=== PATIENT | female | born 2000 | race Caucasian/White ===

== ENCOUNTER 2024-01-29 16:33 | Emergency (ER) | payer OTHER, SELFPAY ==
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
[2024-01-29 16:40] VITALS: BP 137/92; PULSE 81; RESP 18; TEMP 36.7; O2SAT 99; BMI 30.7
--- OUTSIDE RECORDS SUMMARY | 2024-01-29 17:44 | XMS_ITS | Continuity of Care Document ---
Author Organization [facility] [place] [place] Address [address] [place] [address]- Care Team Providers Care Museum Registrar Name Role Phone Not on Staff, PCP Primary Care Physician Unavail able Encounter [facility] Date(s): 08/07/23 - 09/06/23 [facility] [place] Adult [address] [place] [address]- Patient Care team information Care Team Personnel Name: Not on Staff, PCP Position: [facility] Physician (General Medicine) Member Role: PCP Care Team Related Persons Name: ANNY MICHELLE Name: JESSENIA RAE
--- OUTSIDE RECORDS SUMMARY | 2024-01-29 17:44 | XMS_ITS | Continuity of Care Document ---
Author Organization [facility] Address [address] [place] [address]- Care Team Providers Care Ios Developer Name Role Phone Not on Staff, PCP Primary Care Physician Unavail able Encounter [facility] ACCT R [id number] Date(s): 11/14/22 - 12/14/22 [facility] [address] [place] [address]- Attending Physician: Elizabeth Quarles Admitting Physician: Elizabeth Quarles Referring Physician: Admtr Ar8 Patient Care team information Care Team Personnel Name: Not on Staff, PCP Position: S Physician (General Medicine) Member Role: PCP
--- OUTSIDE RECORDS SUMMARY | 2024-01-29 17:44 | XMS_ITS | Continuity of Care Document ---
Author Organization [facility] [place] Address [address] [place] [address]- Care Team Providers Care Deck And Hull Assembler Name Role Phone Not on Staff, PCP Primary Care Physician Unavail able Encounter [facility] Date(s): 11/05/23 - 12/05/23 [facility] [address] [place] [address]- Attending Physician: Admtr, Ar8 Admitting Physician: Admtr, Ar8 Referring Physician: Admtr, Ar8 Patient Care team information Care Team Personnel Name: Not on Staff, PCP Position: S Physician (General Medicine) Member Role: PCP Care Team Related Persons Name: ANNY MICHELLE Address: [address] [place] [address] Name: JESSENIA RAE Address: [address] [place] [address]
--- OUTSIDE RECORDS SUMMARY | 2024-01-29 17:44 | XMS_ITS | Continuity of Care Document ---
Author Organization [facility] [place] Address [address] [place] [address]- Care Team Providers Care Ibm Websphere Commerce Consultant Name Role Phone Not on Staff, PCP Primary Care Physician Unavail able Encounter [facility] Date(s): 08/07/23 - 12/05/23 [facility] [place] Adult [address] [place] [address]- Attending Physician: Bita Cruz Patient Care team information Care Team Personnel Name: Not on Staff, PCP Position: S Physician (General Medicine) Member Role: PCP Care Team Related Persons Name: ANNY MICHELLE Address: [address] [place] [address] Name: JESSENIA RAE Address: [address] [place] [address]
--- OUTSIDE RECORDS SUMMARY | 2024-01-29 17:44 | XMS_ITS | Continuity of Care Document ---
Author Organization [facility] Address [address] [place] [address]- Care Team Providers Care Computer Network And Systems Engineer Name Role Phone Not on Staff, PCP Primary Care Physician Unavail able Encounter [facility] Date(s): 11/11/22 - 12/14/22 [facility] [address] [place] [address]- Attending Physician: Sandy Carranza MD Patient Care team information Care Team Personnel Name: Not on Staff, PCP Position: S Physician (General Medicine) Member Role: PCP
--- OUTSIDE RECORDS SUMMARY | 2024-01-29 17:45 | XMS_ITS | Continuity of Care Document ---
Author Organization [facility] Address [address] [place] [address]- Care Team Providers Care Scientific Affairs Manager Name Role Phone Not on Staff, PCP Primary Care Physician Unavail able Encounter [facility] Date(s): 11/07/23 - 12/07/23 [facility] [address] [place] [address]- Patient Care team information Care Team Personnel Name: Not on Staff, PCP Position: [facility] Physician (General Medicine) Member Role: PCP Care Team Related Persons Name: ANNY MICHELLE Address: [address] [place] [address] Name: JESSENIA RAE Address: [address] [place] [address]
--- OUTSIDE RECORDS SUMMARY | 2024-01-29 17:45 | XMS_ITS | Continuity of Care Document ---
Author Organization [facility] Address [address] [place] [address]- Care Team Providers Care Business Support Specialist Name Role Phone Not on Staff, PCP Primary Care Physician Unavail able Encounter [facility] Date(s): 11/07/23 - 01/15/24 [facility] [address] [place] [address]- Attending Physician: Familia Powell DO Patient Care team information Care Team Personnel Name: Not on Staff, PCP Position: S Physician (General Medicine) Member Role: PCP Care Team Related Persons Name: ANNY MICHELLE Address: [address] [place] [address] Name: JESSENIA ARE Address: [address] [place] [address]
[2024-01-29 18:11] VITALS: BP 132/77; PULSE 65; RESP 16; TEMP 36.9; O2SAT 99
[2024-01-29 18:14] LABS: HCG Quantitative < 2 mIU/mL
[2024-01-29] MEDS: Lidocaine 4 % Patch ADH..PATCH 1 PATCH TRANSDERMA (19:05)
[2024-01-29] MEDS: Ketorolac Tromethamine 30 MG/ML VIAL IM (19:06)
--- NOTE | 2024-01-29 19:16 | PC.NURSE ---
pt medicated per mar, awaiting results
[2024-01-29 19:57] VITALS: BP 117/71; PULSE 65; RESP 16; TEMP 36.9; O2SAT 98
[2024-01-29 19:58] VITALS: BP 117/71; PULSE 67; RESP 20; TEMP 36.9; O2SAT 100
--- NOTE | 2024-01-29 19:59 | PC.NURSE ---
Reviewed discharge instruction with pt, pt verbalized understanding, no sign of distress, pt refused tordal and lidocaine patch, provider into to discuss plan of discharge.
== END 2024-01-29 20:00 | disposition home or self-care (01) ==
PROVIDERS: Physician Assistant Medical; Emergency Provider Emergency Medicine
DX: S06.0X0A Concussion without loss of consciousness, initial encounter (principal); S16.1XXA Strain of muscle, fascia and tendon at neck level, initial encounter; V43.62XA Car passenger injured in collision with other type car in traffic accident, initial encounter; Y93.9 Activity, unspecified; Y92.410 Unspecified street and highway as the place of occurrence of the external cause; R51.9 Headache, unspecified
CPT/HCPCS: 36415; 70450; 72125; 84702; 96372; 99284; J1885

== ENCOUNTER 2024-08-02 05:47 | Emergency (ER) | payer OTHER, SELFPAY ==
--- NOTE | ~2024-08-02 | XR_ITS ---
EXAMINATION: XR FINGER, RIGHT CLINICAL INFORMATION: pinky finger injury COMPARISON: None available. TECHNIQUE: 3 view series of the right fifth metacarpal rate. FINDINGS: Images are obtained with a marker directed towards the ulnar aspect of the fifth distal interphalangeal joint. A minimally displaced 2 mm volar plate fracture with intra-articular extension is noted at the base of the fifth middle phalanx. Adjacent soft tissue prominence is present. No soft tissue emphysema. XR/XR finger RT min 2V IMPRESSION: *Minimally displaced intra-articular volar plate fracture of the proximal base of the fifth middle phalanx with intra-articular extension into the fifth proximal interphalangeal joint. Electronically signed by: Sebas Beasley MD 08/02/2024 06:25 AM [facility]
[2024-08-02 05:49] VITALS: BP 145/88; PULSE 109; RESP 20; TEMP 37; O2SAT 99; BMI 29.3
--- OUTSIDE RECORDS SUMMARY | 2024-08-02 06:07 | XMS_ITS | Continuity of Care Document ---
Author Organization [facility] Address [address] [place] [address]- Care Team Providers Care Oracle Erp Architect Name Role Phone Not on Staff, PCP Primary Care Physician Unavail able [facility] Date(s): 11/08/23 - 03/07/24 [facility] [address] [place] [address]- Attending Physician: Marina FOWLER, Zabrina Briceno Immunizations Given and Recorded Vaccine Date Status Refusal Reason tetanus/diphtheria/pertussis, acel(Tdap) 06/10/23 Recorded SARS-CoV-2 (COVID-19) mRNA-1273 vaccine 09/05/21 R ecorded SARS-CoV-2 (COVID-19) mRNA-1273 vaccine 02/28/21 R ecorded SARS-CoV-2 (COVID-19) mRNA-1273 vaccine 01/14/21 R ecorded Patient Care team information Care Team Personnel Name: Not on Staff, PCP Position: S Physician (General Medicine) Member Role: PCP Care Team Related Persons Name: ANNY MICHELLE Address: [address] [place] [address] Name: JESSENIA RAE Address: [address] [place] [address]
--- OUTSIDE RECORDS SUMMARY | 2024-08-02 06:07 | XMS_ITS | Continuity of Care Document ---
Author Organization [facility] Address [address] [place] [address]- Care Team Providers Care Pipe Smoker Machine Operator Name Role Phone Not on Staff, PCP Primary Care Physician Unavail able Encounter [facility] Date(s): 02/06/24 - 03/07/24 [facility] [address] [place] [address]- Attending Physician: Elizabeth Quarles Admitting Physician: AdmtrElizabeth Referring Physician: Admtr, Ar8 Immunizations Given and Recorded Vaccine Date Status [...] Persons Name: ANNY MICHELLE Address: [address] [place] [address] Name: JESSENIA RAE Address: [address] [place] [address]
--- NOTE | 2024-08-02 09:02 | ED.EXTPRO ---
HPI - Extremity Problem General Chief complaint: Extremity Injury, Upper Stated complaint: broken finger Time Seen by Provider: 08/02/24 08:58 Source: patient and RN notes reviewed Mode of arrival: ambulatory Limitations: no limitations History of Present Illness ED Provider: Francisca Palacio PA-C HPI Narrative: This is a 24-year-old female, with no known medical problems, who presents emergency department with complaints of right to left 5th finger pain since this morning. Patient states that she was working on in our project when a metal object fell directly onto her right pinky. She reports that she noticed bruising and came into the emergency room for further treatment. Denies any numbness or tingling. Denies taking any medications prior to arrival. No numbness or tingling. She is right-hand dominant No other complaints or concerns at this time. MD Complaint: extremity pain and extremity swelling Pain Consistency: constant Location: right and upper extremity Quality: aching Radiation: none Relieving factors: nothing Exacerbating factors: nothing Associated symptoms: denies other symptoms Related Data Previous Rx's ?Medication ?Instructions ?Recorded cyclobenzaprine 5 mg tablet 5 mg PO Q8H PRN muscle spasm #7 01/29/24 tabs lidocaine 5 % topical patch 1 patch topical DAILY #15 ea 01/29/24 (Lidoderm) naproxen 500 mg tablet 500 mg PO Q8-12H PRN pain (scale 01/29/24 score 4-6) #20 tabs acetaminophen 500 mg tablet 500 mg PO Q6H PRN pain #30 tabs 08/02/24 (Tylenol Extra Strength) ibuprofen 600 mg tablet 600 mg PO Q6H PRN pain #30 tabs 08/02/24 Allergies Allergy/AdvReac Type Severity Reaction Status Date / Time No Known Allergies Allergy Verified 08/02/24 05:53 Review of Systems Review of Systems: Yes all other systems are reviewed and are negative [facility] Social History Social History Advance Directives: No Advance Directives Information Provided: Yes Physical Exam Vital Signs: Vital Signs: Last Vital Signs Temp 98.6 F 08/02/24 05:49 Pulse 109 H 08/02/24 05:49 Resp 20 08/02/24 05:49 BP 145/88 H 08/02/24 05:49 Pulse Ox 99 08/02/24 05:49 O2 Del Method Room Air 08/02/24 05:49 BMI result Body Mass Index 29.3 Const: Other: General: Awake, alert, and oriented X3. No acute distress. HEENT: Normal inspection CVS: Normal heart rate and rhythm. Pulses normal. Respiratory: No respiratory distress Skin: Warm, dry, no rashes noted to exposed skin. Normal skin color. Normal skin turgor. Extremities: Right 5th digit, palmar aspect, overlying the proximal middle phalanx, there is ecchymosis, and point tenderness palpation. No open wounds. Patient has full range of motion of the digit without difficulty. Strong radial pulse. Capillary refill less than 2 seconds. Neuro: Oriented X 3. No motor deficit. No sensory deficit. Medical Decision Making Medical Decision Making MDM Narrative: This is a 24-year-old female who presents emergency department with complaints of right 5th digit pain since this morning. On arrival, patient has tenderness palpation along the proximal phalanx. Differential diagnoses include sprain, strain, contusion, fracture. X-rays performed revealing minimally displaced intra-articular volar plate fracture of the proximal base of the 5th phalanx with intra articular extension into the 5th proximal interphalangeal joint. Discussed findings with patient. She was placed in finger splint. Given orthopedic referral. Discharged on ibuprofen and Tylenol. Given return precautions. Patient stable for discharge Differential Diagnosis Differential Diagnoses: The differential diagnosis associated with the presentation includes See above Radiology Impression Discussion of test interpretation with radiology: I have reviewed the radiologist's reading. Radiologist Impression: XR/XR finger RT min 2V IMPRESSION: *Minimally displaced intra-articular volar plate fracture of the proximal base of the fifth middle phalanx with intra-articular extension into the fifth proximal interphalangeal joint. Electronically signed by: Sebas Beasley MD 08/02/2024 06:25 AM [facility] Dictated By: Sebas Beasley MD Discharge Plan Discharge Clinical Impression: Finger fracture, right Patient Disposition: Home, Self-Care Instructions: Finger Fracture (ED) Additional Instructions: You were seen in the ER due to finger pain. You fractured part of your pinky today. Please rest, ice, elevate, and use finger splint. Alternate between ibuprofen and Tylenol as needed for pain. Call the orthopedics today for follow-up. If any new or worsening symptoms occur including but not limited to worsening pain, loss of sensation to your finger, please seek emergent care Prescriptions: New ibuprofen 600 mg tablet 600 mg PO Q6H PRN (Reason: pain) Qty: 30 0RF acetaminophen [Tylenol Extra Strength] 500 mg tablet 500 mg PO Q6H PRN (Reason: pain) Qty: 30 0RF No Action cyclobenzaprine 5 mg tablet 5 mg PO Q8H PRN (Reason: muscle spasm) Qty: 7 0RF lidocaine [Lidoderm] 5 % adhesive patch,medicated 1 patch topical DAILY Qty: 15 0RF Rx Instructions: leave on most painful area for up to 12 hrs naproxen 500 mg tablet 500 mg PO Q8-12H PRN (Reason: pain (scale score 4-6)) Qty: 20 0RF Referrals: [facility] [Provider Group] Print Language: Slovak
[2024-08-02 09:21] VITALS: BP 130/80; PULSE 82; RESP 16; TEMP 36.8; O2SAT 100
== END 2024-08-02 09:22 | disposition home or self-care (01) ==
PROVIDERS: Emergency Provider Emergency Medicine; PCP Family Medicine
DX: S62.316A Displaced fracture of base of fifth metacarpal bone, right hand, initial encounter for closed fracture (principal); W20.8XXA Other cause of strike by thrown, projected or falling object, initial encounter; Y93.9 Activity, unspecified; Y92.9 Unspecified place or not applicable; Y99.9 Unspecified external cause status; M79.644 Pain in right finger(s)
CPT/HCPCS: 73140; 99282; 99283